=== PATIENT | male | born 1965 | race African-American/Black ===

== ENCOUNTER 2017-08-03 18:25 | Emergency (ER) | payer OTHER ==
[~2017-08-03] VITALS: Ht 180.3 cm; Wt 84.1 kg
[2017-08-03] MEDS ORDERED: ALBUTEROL SULFATE 2.5 MG/0.5 ML NEB SOLUTION NEB ONE ×2 (18:45→20:00)
[2017-08-03] MEDS ORDERED: IPRATROPIUM BROMIDE 0.5 MG/2.5 ML NEB SOLUTION NEB ONE ×2 (18:45→20:00)
[2017-08-03] MEDS ORDERED: 0.9% SODIUM CHLORIDE 5 ML NEB SOLUTION NEB ONE (18:46)
[2017-08-03] MEDS ORDERED: ALBUTEROL SULFATE HFA 90 MCG/PUFF 8 GM INHALER IH ONE (19:15)
[2017-08-03 20:45] LABS: BASOPHILS % (AUTO) 0.2 % (0.0-2.0); EOSINOPHILS % (AUTO) 0.2 % (1.0-6.0); HEMATOCRIT 42.6 % (41-53); HEMOGLOBIN 14.2 g/dL (13.5-17.5); LYMPHOCYTES # (AUTO) 1.3 K/uL (1.0-4.8); LYMPHOCYTES % (AUTO) 6.4 % (22.0-44.0); MEAN CORPUSCULAR HEMOGLOBIN 30.1 pg (26.0-34.0); MEAN CORPUSCULAR HGB CONC 33.3 G/dL (31.0-37.0); MEAN CORPUSCULAR VOLUME 90 fL (80-100); MONOCYTES # (AUTO) 1.1 K/uL (0.1-1.0); MONOCYTES % (AUTO) 5.4 % (2.0-9.0); NEUTROPHILS # (AUTO) 18.1 K/uL (1.8-7.7); PLATELET COUNT (AUTO) 272 K/uL (150-450); RED BLOOD CELL COUNT(AUTO) 4.71 MIL/uL (4.50-5.90); RED CELL DISTRIBUTION WIDTH 14.1 % (11.5-14.5); WHITE BLOOD COUNT (AUTO) 20.6 K/uL (4.5-11.0)
[2017-08-03 20:48] LABS: NEUTROPHILS % (AUTO) 87.8 % (40.0-70.0)
[2017-08-03 21:05] LABS: ANION GAP 7 mmol/L (8-16); CALCIUM, TOTAL 8.4 mg/dL (8.8-10.5); CARBON DIOXIDE 32 mmol/L (22-29); CHLORIDE 103 mmol/L (98-107); CREATININE 1.05 mg/dL (0.60-1.30); GLOMERULAR FILTR. RATE CALC > 60 mL/min (>60); POTASSIUM 4.6 mmol/L (3.5-5.1); SODIUM SERUM 142 mmol/L (136-145); UREA NITROGEN, BLOOD 9 mg/dL (7-18)
[2017-08-03 21:10] LABS: ALANINE AMINOTRANSFERASE 27 U/L (12-78); ALBUMIN 3.8 g/dL (3.4-5.0); ASPARTATE AMINOTRANSFERASE 19 U/L (15-37); BILIRUBIN,TOTAL 0.5 mg/dL (0.1-1.0); TOTAL PROTEIN, SERUM 7.7 g/dL (6.4-8.2)
[2017-08-03] MEDS ORDERED: IOVERSOL 350 MG/ML 100 ML VIAL ONE (21:14)
[2017-08-03 21:16] LABS: RBC MORPHOLOGY COMMENT NORMAL RBC MORPH
[2017-08-03 23:24] VITALS: BP 155/104
[2017-08-03] MEDS ORDERED: LEVOFLOXACIN 250 MG TABLET PO ONE (23:30)
== END 2017-08-03 23:44 | disposition home or self-care (01) ==
LOC: EMS 18:26
DX: J18.9 Pneumonia, unspecified organism (principal); J45.909 Unspecified asthma, uncomplicated
CPT/HCPCS: 36415; 71010; 71275; 80053; 84484; 85025; 85379; 93005; 94640; 99285; J7613; Q9967; J3535

== ENCOUNTER 2018-06-19 13:35 | Emergency (ER) | payer OTHER ==
[~2018-06-19] VITALS: Ht 180.3 cm; Wt 88.6 kg
[2018-06-19 15:57] VITALS: BP 153/92
[2018-06-20] MEDS ORDERED: ALBU8.5H8 IH (08:21)
[2018-06-20] MEDS ORDERED: PRED2.5T PO (08:21)
[2018-06-20] MEDS ORDERED: PROMVCC5L PO (08:21)
== END 2018-06-19 17:00 | disposition left against medical advice (07) ==
LOC: EMS 13:36
DX: J45.909 Unspecified asthma, uncomplicated (principal); R05 Cough
CPT/HCPCS: 99281

== ENCOUNTER 2018-06-20 08:10 | Emergency (ER) | payer OTHER ==
[~2018-06-20] VITALS: Ht 180.3 cm; Wt 81.8 kg
[2018-06-20] MEDS ORDERED: ALBU8.5H8 IH (08:21)
[2018-06-20] MEDS ORDERED: PROMVCC5L PO (08:21)
[2018-06-20] MEDS ORDERED: PRED2.5T PO (08:21)
[2018-06-20] MEDS ORDERED: IPRATROPIUM BROMIDE 0.5 MG/2.5 ML NEB SOLUTION NEB ONE (10:15)
[2018-06-20] MEDS ORDERED: ALBUTEROL SULFATE 2.5 MG/0.5 ML NEB SOLUTION NEB ONE (10:15)
[2018-06-20 10:33] LABS: BASOPHILS % (AUTO) 0.4 % (0.0-2.0); EOSINOPHILS % (AUTO) 2.2 % (1.0-6.0); HEMATOCRIT 42.1 % (41-53); HEMOGLOBIN 13.9 g/dL (13.5-17.5); LYMPHOCYTES # (AUTO) 1.7 K/uL (1.0-4.8); LYMPHOCYTES % (AUTO) 10.9 % (22.0-44.0); MEAN CORPUSCULAR HEMOGLOBIN 29.2 pg (26.0-34.0); MEAN CORPUSCULAR HGB CONC 32.9 G/dL (31.0-37.0); MEAN CORPUSCULAR VOLUME 89 fL (80-100); MONOCYTES # (AUTO) 1.2 K/uL (0.1-1.0); MONOCYTES % (AUTO) 7.4 % (2.0-9.0); NEUTROPHILS # (AUTO) 12.3 K/uL (1.8-7.7); NEUTROPHILS % (AUTO) 79.1 % (40.0-70.0); PLATELET COUNT (AUTO) 314 K/uL (150-450); RED BLOOD CELL COUNT(AUTO) 4.75 MIL/uL (4.50-5.90); RED CELL DISTRIBUTION WIDTH 13.6 % (11.5-14.5)
[2018-06-20] MEDS ORDERED: 0.9% SODIUM CHLORIDE 5 ML NEB SOLUTION NEB ONE (10:41)
[2018-06-20 12:31] VITALS: BP 154/96
== END 2018-06-20 12:38 | disposition home or self-care (01) ==
LOC: EMS 08:11
DX: J40 Bronchitis, not specified as acute or chronic (principal); Z79.899 Other long term (current) drug therapy
CPT/HCPCS: 36415; 71045; 85025; 87430; 94640; 99285; J7613

== ENCOUNTER 2018-12-07 07:59 | Emergency (ER) | payer OTHER ==
[~2018-12-07] VITALS: Ht 180.3 cm; Wt 77.3 kg
[~2018-12-07 07:59] MED LIST: ALBU8.5H8 IH; PRED2.5T PO; PROMVCC5L PO
[2018-12-07 08:44] VITALS: BP 148/103
== END 2018-12-07 09:04 | disposition home or self-care (01) ==
LOC: EMS 08:00
DX: J20.9 Acute bronchitis, unspecified (principal); R03.0 Elevated blood-pressure reading, without diagnosis of hypertension

== ENCOUNTER 2019-08-29 23:50 | Emergency (ER) | payer OTHER ==
[~2019-08-29] VITALS: Ht 175.3 cm; Wt 85.6 kg
[2019-08-30 00:20] LABS: HEMATOCRIT 46.7 % (41-53); HEMOGLOBIN 15.4 g/dL (13.5-17.5); LYMPHOCYTES # (AUTO) 3.3 K/uL (1.0-4.8); LYMPHOCYTES % (AUTO) 39.5 % (22.0-44.0); MEAN CORPUSCULAR HEMOGLOBIN 29.4 pg (26.0-34.0); MEAN CORPUSCULAR VOLUME 89 fL (80-100); MONOCYTES # (AUTO) 0.9 K/uL (0.1-1.0); MONOCYTES % (AUTO) 10.5 % (2.0-9.0); NEUTROPHILS # (AUTO) 3.7 K/uL (1.8-7.7); PLATELET COUNT (AUTO) 352 K/uL (150-450); RED BLOOD CELL COUNT(AUTO) 5.24 MIL/uL (4.50-5.90); RED CELL DISTRIBUTION WIDTH 13.4 % (11.5-14.5)
[2019-08-30] MEDS ORDERED: NALOXONE HCL 1 MG/ML 2 ML SYG IVP ONE (00:30)
[2019-08-30 00:32] LABS: ANION GAP 10 mmol/L (8-16); CALCIUM, TOTAL 8.7 mg/dL (8.8-10.5); CARBON DIOXIDE 29 mmol/L (22-29); CHLORIDE 97 mmol/L (98-107); CREATININE 0.81 mg/dL (0.60-1.30); GLOMERULAR FILTR. RATE CALC > 60 mL/min (>60); GLUCOSE,RANDOM 313 mg/dL (70-110); POTASSIUM 4.1 mmol/L (3.5-5.1); SODIUM SERUM 136 mmol/L (136-145); UREA NITROGEN, BLOOD 7 mg/dL (7-18)
[2019-08-30] MEDS ORDERED: IOVERSOL 350 MG/ML 100 ML VIAL ONE (00:35)
[2019-08-30] MEDS ORDERED: SODIUM CHLORIDE 0.9% 100 ML ONE (00:35)
[2019-08-30 00:37] LABS: SALICYLATE 1.4 mg/dL (2.8-20.0)
[2019-08-30 00:39] LABS: ACETAMINOPHEN < 2 mcg/mL (10-30); ALANINE AMINOTRANSFERASE 23 U/L (12-78); ALBUMIN 3.9 g/dL (3.4-5.0); ALKALINE PHOSPHATASE 82 U/L (46-116); ASPARTATE AMINOTRANSFERASE 15 U/L (15-37); BILIRUBIN,TOTAL 0.3 mg/dL (0.1-1.0); TOTAL PROTEIN, SERUM 7.9 g/dL (6.4-8.2)
[2019-08-30 01:19] LABS: SOURCE, BLOOD GAS ARTERIAL; TEMPERATURE, FAHRENHEIT, BG 98.6 FAHREN (96.0-98.6)
[2019-08-30 01:45] LABS: AMPHET/METH SCREEN,URINE NEGATIVE (NEGATIVE); BARBITURATE SCREEN, URINE NEGATIVE (NEGATIVE); BENZODIAZEPINES SCREEN,URINE POSITIVE (NEGATIVE); CANNABINOID SCREEN,URINE NEGATIVE (NEGATIVE); COCAINE SCREEN,URINE NEGATIVE (NEGATIVE); METHADONE SCREEN, URINE NEGATIVE (NEGATIVE); OPIATE SCREEN,URINE POSITIVE (NEGATIVE); PHENCYCLIDINE SCREEN,URINE NEGATIVE (NEGATIVE)
[2019-08-30 01:59] LABS: ABG A-A DIFF O2 19.3 mmHg (10-20.0); ABG BASE EXCESS -0.1 mmol/L (-2.0-3.0); ABG CARBOXYHEMOGLOBIN 0.8 % (0.0-1.5); ABG HCO3 24.4 mmol/L (22.0-26.0); ABG METHEMOGLOBIN 0.3 % (0.0-1.5); ABG OXYGEN CONTENT 21.1 mL/dL (15.0-23.0); ABG OXYGEN SATURATION 96.5 % (95.0-98.0); ABG OXYHEMOGLOBIN 95.4 % (94.0-100.0); ABG PCO2 40 mmHg (35-45); ABG PH 7.403 (7.35-7.450); ABG TOTAL HEMOGLOBIN 15.7 G/dL (12.0-18.0); PO2, ARTERIAL BG 82.1 mmHg (84.0-92.0)
[2019-08-30 02:00] LABS: SITE, BLOOD GAS RT RADIAL
[2019-08-30 02:01] VITALS: BP 178/105
== END 2019-08-30 03:32 | disposition left against medical advice (07) ==
LOC: EMS 23:50
DX: R41.82 Altered mental status, unspecified (principal); R33.9 Retention of urine, unspecified; J45.909 Unspecified asthma, uncomplicated; Z98.890 Other specified postprocedural states
CPT/HCPCS: 36415; 51701; 70450; 70496; 80053; 80307; 82140; 82805; 82962; 84484; 85025; 93005; 96374; 99291; G0480; J2310; J7050; Q9967; G0481

== ENCOUNTER 2019-09-12 05:11 | Emergency (ER) | payer OTHER ==
[~2019-09-12] VITALS: Ht 180.3 cm; Wt 81.0 kg
[2019-09-12 06:33] VITALS: BP 156/113
[2019-09-12] MEDS ORDERED: LIDOCAINE 5% TRANSDERMAL PATCH TD ONE (06:45)
[2019-09-12] MEDS ORDERED: ACETAMINOPHEN 325 MG TABLET PO ONE (06:45)
== END 2019-09-12 06:52 | disposition home or self-care (01) ==
LOC: EMS 05:13
DX: M79.601 Pain in right arm (principal); J45.909 Unspecified asthma, uncomplicated; I10 Essential (primary) hypertension

== ENCOUNTER 2019-11-30 11:36 | Emergency (ER) | payer OTHER ==
[~2019-11-30] VITALS: Ht 180.3 cm; Wt 81.8 kg
[2019-11-30 13:25] VITALS: BP 145/85
== END 2019-11-30 13:31 | disposition home or self-care (01) ==
LOC: EMS 11:36
DX: J40 Bronchitis, not specified as acute or chronic (principal); R06.02 Shortness of breath

== ENCOUNTER 2023-07-16 13:05 | Emergency (ER) | payer OTHER ==
[~2023-07-16] VITALS: Ht 180.3 cm; Wt 77.3 kg
[2023-07-16 13:09] VITALS: TEMP 98
[2023-07-16] MEDS ORDERED: HYDROCODONE/ACETAMINOPHEN 5-325 MG TABLET PO ONE (14:00)
[2023-07-16] MEDS ORDERED: CYCL-448 PO (15:04)
[2023-07-16] MEDS ORDERED: LIDO700A15 TP (15:04)
[2023-07-16 15:10] VITALS: BP 160/110; PULSE 98; RESP 16
== END 2023-07-16 15:19 | disposition home or self-care (01) ==
LOC: EMS 13:23
DX: S16.1XXA Strain of muscle, fascia and tendon at neck level, initial encounter (principal); E11.9 Type 2 diabetes mellitus without complications; J45.909 Unspecified asthma, uncomplicated; V89.2XXA Person injured in unspecified motor-vehicle accident, traffic, initial encounter; Y93.89 Activity, other specified; Y92.89 Other specified places as the place of occurrence of the external cause; Y99.8 Other external cause status
CPT/HCPCS: 72125; 99284; Z7502; Z7610